=== PATIENT | male | born 1960 | race Caucasian/White ===

== ENCOUNTER 2020-11-24 04:48 | Inpatient (IN) | payer SELFPAY ==
[2020-11-24 05:19] LABS: PARTIAL THROMBOPLASTIN TIME 27.2 SEC (23.5-35.8)
[2020-11-24 05:21] LABS: ABSOLUTE BASOPHILS # (AUTO) 0.1 10^3/uL (0.0-0.2); ABSOLUTE EOSINOPHILS # (AUTO) 0.2 10^3/uL (0.0-0.6); ABSOLUTE LYMPHOCYTES (AUTO) 2.1 10^3/uL (0.5-4.7); ABSOLUTE MONOCYTES (AUTO) 0.8 10^3/uL (0.1-1.4); ABSOLUTE NEUT (AUTO) 3.2 10^3/uL (1.7-8.2); BASOPHILS % (AUTO) 0.8 % (0-2); EOSINOPHILS % (AUTO) 3.3 % (0-6); HEMOGLOBIN 14.3 g/dL (13.5-17.0); LYMPHOCYTES % (AUTO) 33.4 % (13-45); MEAN CORPUSCULAR HEMOGLOBIN 29.4 pg (27.0-33.4); MEAN CORPUSCULAR HGB CONC 34.8 g/dL (32.0-36.0); MEAN CORPUSCULAR VOLUME 85 fl (80-97); MONOCYTES % (AUTO) 11.9 % (3-13); PLATELET COUNT 259 10^3/uL (150-450); RED BLOOD COUNT 4.85 10^6/uL (4.35-5.55); RED CELL DISTRIBUTION WIDTH 13.5 % (11.5-14.0); SEGMENTED NEUTROPHILS % (AUTO) 50.6 % (42-78); TOTAL CELLS COUNTED % (AUTO) 100 %; WHITE BLOOD COUNT 6.3 10^3/uL (4.0-10.5)
[2020-11-24 05:28] LABS: INTERNATIONAL RATION (INR) 0.94; PROTHROMBIN TIME 12.8 SEC (11.4-15.4)
[2020-11-24 05:30] LABS: ALBUMIN 4.1 g/dL (3.5-5.0); ALKALINE PHOSPHATASE 64 U/L (38-126); ANION GAP 7 (5-19); ASPARTATE AMINO TRANSFERASE 35 U/L (17-59); BILIRUBIN,DIRECT 0.3 mg/dL (0.0-0.4); BILIRUBIN,TOTAL 0.5 mg/dL (0.2-1.3); BLOOD UREA NITROGEN 20 mg/dL (7-20); CALCIUM 9.4 mg/dL (8.4-10.2); CARBON DIOXIDE 25 mmol/L (22-30); CHLORIDE 106 mmol/L (98-107); CREATINE KINASE 135 U/L (55-170); GLUCOSE 118 mg/dL (75-110); POTASSIUM 4.2 mmol/L (3.6-5.0)
--- NOTE | 2020-11-24 05:33 | ER Document Report ---
ED Medical Screen (RME) - General Chief Complaint: General Weakness Stated Complaint: RIGHT SIDE WEAKNESS - HPI Context: Chief Complaint: [Right-sided weakness] [This is a 59-year-old male who presents via EMS as a stroke alert. Patient states that he was in his usual state of health when he went to bed at 2200 hrs. last night. Patient states that when he woke up at 4 AM to use the bathroom he noticed he had weakness in his right lower extremity that he is not had in the past. Patient denied slurred speech, visual change, headache, upper extremity weakness, facial droop. This MD met the patient at the EMS bay door and did a cursory exam of the patient. ] History obtained from [patient] Symptoms began:[Sometime after 2200 hrs. last night] Onset: [Exact time of onset unknown] Timing: [While sleeping] Quality: [Inability to move right lower extremity] Intensity: [Patient denies pain] Location: [Right lower extremity] Radiation: [Patient denies] [The pain does not migrate to a new location.] Aggravating factors: [none] Relieving factors: [none] [Denies] SOB [Denies] nausea [Denies] vomiting [Denies] sweats [Denies] fever [Denies] cough [Denies] calf or leg swelling or pain This is a rapid medical examination that has been performed by this provider. Further evaluation and treatment will be undertaken by another provider in the main ED. Patient's stroke protocol CT was read as negative by Dr. Chris Kapadia, radiologist. Results of head CT discussed with Dr. Kapadia at 0535 hrs. Past Medical History - General Information source: Patient Review of Systems - Review of Systems Notes: Review of systems as below unless otherwise stated in HPI. CONSTITUTIONAL [No] fever, [No] chills. EYES [No] eye pain. ENT [No] URI symptoms, [No] sore throat, [No] ear pain. CARDIOVASCULAR [No] chest pain, [No] palpitations, [No] edema. RESPIRATORY [No] Cough, [No] SOB, [No] wheezing. GASTROINTESTINAL [No] abdominal pain, [No] nausea, [No] Diarrhea, [No] Vomiting, [No] constipation, [No] melena, [No] rectal bleeding. GENITOURINARY [No] dysuria, [No] urinary frequency, [No] hematuria, [No] urinary urgency MUSCULOSKELETAL [No] Back pain. SKIN [No] Rash. NEUROLOGIC [No] Headache, [No] recent seizures, positive paralysis,[No] parathesias. ENDOCRINE [No] polyuria. HEMO/LYMPATIC [No] easy brusing PSYCHIATRIC [No] depression. Physical Exam - Vital signs Vitals: Resp Pulse Ox 15 98 11/24/20 05:00 11/24/20 05:00 - Notes Notes: CONSTITUTIONAL [Vital signs reviewed, Patient appears comfortable, Alert and oriented X 3, Normal stature.] HEAD [Atraumatic, Normocephalic.] EYES [Eyes are normal to inspection, No discharge from eyes, Extraocular muscles intact, Sclera are normal, Conjunctiva are normal.] ENT [External ears normal to inspection, Nose examination normal, Mouth normal to inspection.] NECK [Normal ROM, No jugular venous distention, No meningeal signs, ] RESPIRATORY CHEST [Chest is nontender, Breath sounds normal, No respiratory distress.] CARDIOVASCULAR [RRR, No murmurs, Normal S1 S2, No rub, No gallop.] ABDOMEN [Abdomen is nontender, No pulsatile masses, No other masses, Bowel sounds normal, No distension, No peritoneal signs, No hernias.] BACK [There is no CVA Tenderness, There is no tenderness to palpation, Normal inspection.] UPPER EXTREMITY [Inspection normal, No cyanosis, No clubbing, No edema, LOWER EXTREMITY [Inspection normal, No cyanosis, No clubbing, No edema, No calf tenderness, NEURO [Patient's speech is normal. Patient is alert and oriented x4. There is no facial droop. Patient has no pronator drift and has upper extremities. Research Recruiter strength is 5 out of 5 in bilateral hands. Sensation is equally intact in upper extremities bilaterally. Patient has no pronator drift in his left lower extremity. Patient has a normal Babinski in his left lower extremity. Patient is unable to raise his right lower extremity and his foot is fixed in a position of plantarflexion. Unable to elicit any Babinski reflex. There is no tenderness or step-off on palpation of the Achilles tendon on the right lower extremity. Patient states sensation feels completely equal and intact in both lower extremities.] SKIN [Skin is warm, Skin is dry, Skin is normal color.] LYMPHATIC [No adenopathy in neck.] PSYCHIATRIC [Normal affect. ] Course - Vital Signs Vital signs: Temp Pulse Resp BP Pulse Ox 97 17 177/105 H 97 11/24/20 05:07 11/24/20 05:07 11/24/20 05:07 11/24/20 05:07 - Laboratory Results Result Diagrams: 11/24/20 05:00 11/24/20 05:00 Laboratory Results Interpreted: 11/24/20 05:00 Glucose 118 H Doctor's Discharge - Discharge Clinical Impression: Weakness of right lower extremity
--- NOTE | 2020-11-24 05:35 | RADIOLOGY REPORT (SQ) ---
CT head without contrast on 11/24/2020 at 4:51 AM CLINICAL INDICATION: Right lower extremity weakness, stroke alert TECHNIQUE: Multiple axial images are obtained throughout the head without the administration of contrast. This exam was performed according to our departmental dose-optimization program, which includes automated exposure control, adjustment of the mA and/or kV according to patient size and/or use of iterative reconstruction technique. Total DLP is 1017.17 mGy*cm. COMPARISON: None FINDINGS: There is no hydrocephalus. There is no CT evidence of acute infarct. There is no hemorrhage. There are no abnormal extra-axial fluid collections. There is no mass, mass effect or midline shift. No bony abnormality is noted. IMPRESSION: No acute intracranial abnormality. Dr. Norton was made aware of this report by myself by phone on 11/24/2020 at 5:34 AM eastern time.
[2020-11-24 05:41] LABS: CREATINE KINASE MB 1.37 ng/mL (<4.55)
[2020-11-24 05:44] LABS: TROPONIN I < 0.012 ng/mL
--- NOTE | 2020-11-24 05:51 | RADIOLOGY REPORT (SQ) ---
CHEST X-RAY 1 VIEW on 11/24/2020 at 4:57 AM CLINICAL INDICATION: Stroke COMPARISON: None FINDINGS: The lungs are clear. Cardiac, hilar and mediastinal contours are within normal limits. Pulmonary vascularity is within normal limits. No bony abnormality is noted. IMPRESSION: No active disease.
--- NOTE | 2020-11-24 07:38 | ER Document Report ---
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 Patient states that he was in his usual state when he went to bed at around 2200 hrs. last night. He awakened to go to the bathroom about 4 AM this morning and when he attempted to get out of bed his right leg collapsed underneath him. He was unable to get himself up and call for help and was transported here via EMS. He was seen for limited evaluation by another physician here initially. They ordered a stat noncontrast head CT which was normal. Routine labs were ordered. He denies headache, visual changes, nausea, vomiting, difficulty with speech or swallowing. He has some minimal paresthesias of his right lower extremity. Patient is not diabetic and does not report any history of hyperlipidemia. Family history is positive for CVA. Patient quit drinking about 3 months ago. Says he was a moderate to heavy drinker prior to that time. Past medical history is remarkable for hypertension and history of ankylosing spondylitis. He has been treated in the past for iritis. He has no known allergies. - Related Data Allergies/Adverse Reactions: No Known Allergies Allergy (Verified 11/24/20 07:27) Home Medications: meclazine, meloxicam, escitalopram, olmesartan medoximil Past Medical History - General Information source: Patient - Social History Smoking Status: Never Smoker Frequency of alcohol use: None Drug Abuse: None Family History: CVA Patient has homicidal ideation: No - Past Medical History Cardiac Medical History: Reports: Hx Hypertension Neurological Medical History: Denies: Hx Cerebrovascular Accident, Hx Migraine Endocrine Medical History: Denies: Hx Diabetes Mellitus Type 1, Hx Diabetes Mellitus Type 2 Musculoskeletal Medical History: Reports Hx Arthritis, Reports Other - Ankylosing spondylitis Surgical Hx: Negative Review of Systems - Review of Systems Notes: Constitutional: Negative for fever. HENT: Negative for sore throat. Eyes: Negative for visual changes. Cardiovascular: Negative for chest pain. Respiratory: Negative for shortness of breath. Gastrointestinal: Negative for abdominal pain, vomiting or diarrhea. Genitourinary: Negative for dysuria. Musculoskeletal: Negative for back pain. Skin: Negative for rash. Neurological: As per HPI. 10 point ROS negative except as marked above and in HPI. Physical Exam - Vital signs Vitals: Temp 97.8 F 11/24/20 04:50 - Notes Notes: GENERAL: Well-developed well-nourished male approximately stated age appearing in no acute distress. SKIN: Good turgor no rashes. HEAD: Normocephalic atraumatic. EYES: PERRLA. EOMI. Conjunctivae and sclerae clear. EARS: CANALS AND TMS CLEAR. NOSE: CLEAR. MOUTH: Moist mucosa. Good dentition. No stridor or edema. No drooling. NECK: Supple. No masses or thyromegaly. No adenopathy. Carotids 2+ without bruits. No JVD. BACK: Symmetrical without tenderness. Straight leg raising test is negative. CHEST: Respirations unlabored. Breath sounds clear and symmetrical. HEART: Regular rhythm. No murmur gallop or rub. ABDOMEN: Soft nontender without masses, organomegaly or rebound. Bowel sounds normally active. No bruits. GENITALIA: Deferred. EXTREMITIES: No edema. No calf tenderness. Cap refill less than 1.5 seconds. Dorsalis pedis and posterior tibial pulses 3+ and symmetrical. NEUROLOGICAL: GCS 15. Alert and oriented x3. Fluent speech. Cranial nerves II through XII intact. Patient has paralysis of his right lower extremity unable to lift this off the bed. Sensation is normal and symmetrical all of the motor testing is normal. Finger-nose testing is normal normal tone. PSYCHIATRIC: Appropriate affect. Course - Re-evaluation Re-evalutation: 11/24/20 11:39 This is a 59-year-old non-smoking male with a history of mild hypertension who presented with "wake-up stroke" symptoms. Patient reported he was in his usual state at 10 PM when he went to bed. When he awakened shortly at 5 AM he had profound motor impairment of his right lower extremity. This was confirmed on his exam here. Initial noncontrast head CT was read as normal by the radiologist. We subsequently obtained CTA of head and neck also read as normal. Motor impairment is persistent right lower extremity. We therefore obtained MRI of the brain and this demonstrates an acute infarct in the left MCA distribution involving the left centrum semiovale near the midline and this extends to involve the anterior parietal lobe. I have contacted the stroke center at [facility] for consultation regarding possible transfer. Patient has been advised of these results. 11/24/20 12:17 Telephone consultation was obtained with Dr. Mihai Clinton the on-call stroke neurologist at [facility] and we have transmitted all imaging to him for review. He concurs that this is an acute ischemic stroke which appears to involve the anterior cerebral artery on the left. He does not feel that thrombolytics or interventional radiology procedure will be helpful in this case. He recommends local admission with additional studies to include hemoglobin A1c, echocardiogram and telemetry monitoring for dysrhythmia. Also recommends initiation of aspirin therapy. Findings/recommendations have been discussed with the patient and he is agreeable to admission. I have discussed with on-call hospitalist Dr. Tony and patient is admitted to [facility]. - Vital Signs Vital signs: Temp Pulse Resp BP Pulse Ox 98.3 F 82 17 164/90 H 96 11/24/20 11:30 11/24/20 11:00 11/24/20 12:01 11/24/20 12:00 11/24/20 12:01 - Laboratory Results Result Diagrams: 11/24/20 05:00 11/24/20 05:00 Laboratory Results Interpreted: 11/24/20 05:00 Glucose 118 H Critical Laboratory Results Reviewed: No Critical Results - Radiology Results Radiology Results Interpreted: 11/24/20 11:39 Chest X-Ray 11/24/20 00:00 IMPRESSION: No active disease. Head CT 11/24/20 00:00 IMPRESSION: No acute intracranial abnormality. Dr. Norton was made aware of this report by myself by phone on 11/24/2020 at 5:34 AM eastern time. Head CTA 11/24/20 07:32 IMPRESSION: NO CTA EVIDENCE OF STENOSIS OR ANEURYSM OF THE [place]. Neck CTA 11/24/20 07:32 IMPRESSION: NORMAL CTA OF THE EXTRA-CRANIAL CAROTID AND VERTEBRAL ARTERIES. Head MRI 11/24/20 09:12 IMPRESSION: Acute infarct in the left MCA distribution involving the left centrum semiovale near the midline. This extends to involve the anterior parietal lobe. Mild underlying small vessel ischemic changes in the periventricular and subcortical white matter. EVIDENCE OF ACUTE STROKE: YES. Critical Radiology Results Reviewed: Yes Attending or Supervising Physician who Reviewed Radiology: TYLER PHAN - EKG Interpretation by Me Additional EKG results interpreted by me: 11/24/20 07:43 Twelve-lead EKG reviewed by me contemporaneously: 0512 hrs. Indication for study: Stroke Rhythm: Normal sinus Rate: 93 Intervals: Normal intervals QRS axis: -[address]/T wave changes: None Comparison with prior tracing: None Interpretation: Normal tracing Discharge - Discharge Clinical Impression: Acute ischemic cerebrovascular accident (CVA) involving anterior cerebral artery territory Clinical Impression: (Ruled Out): Weakness of right lower extremity Condition: Good Disposition: ADMITTED INPATIENT Admitting Provider: Cecily (Hospitalist) Unit Admitted: [facility]
--- NOTE | 2020-11-24 07:55 | EKG REPORT ---
SEVERITY:- NORMAL ECG - SINUS RHYTHM : Confirmed by: Chery Bean 24-Nov-2020 07:54:21
--- NOTE | 2020-11-24 08:48 | RADIOLOGY REPORT (SQ) ---
EXAM DESCRIPTION: CTA HEAD IMAGES COMPLETED DATE/TIME: 11/24/2020 8:18 am REASON FOR STUDY: stroke COMPARISON: None. TECHNIQUE: Post IV contrast scanning, thin section axial imaging through the brain to evaluate the a rterial structures. Source and MIP images are saved and reviewed on PACS. Advanced 3D imaging as volume-rendering, MIPs, SSD performed? yes All CT scanners at this facility use dose modulation, iterative reconstruction, and/or weight based d osing when appropriate to reduce radiation dose to as low as reasonably achievable (ALARA). [facility]: Dose Right [facility]: CareDose [facility]: Dose Right [facility]: Teradose 4D [facility]: Naldo CONTRAST TYPE AND DOSE: contrast/concentration: Isovue 350.00 mmol/ml; Total Contrast Delivered: 70. 0 ml; Total Saline Delivered: 75.0 ml RENAL FUNCTION: BUN 20, creatinine 1.14 LIMITATIONS: None. FINDINGS: [place]: The anterior, middle, posterior cerebral arteries are all patent. No ev idence of aneurysm or focal stenosis. POSTERIOR CIRCULATION: The distal vertebral arteries are patent as is the basilar artery. No aneurysm . BRAIN: No gross enhancing lesions as visualized. The superior cerebral hemispheres are not included in the field of view. BONES: Intact as visualized. SINUSES: No fluid or mucosal thickening. OTHER: No other significant finding. IMPRESSION: NO CTA EVIDENCE OF STENOSIS OR ANEURYSM OF THE [place]. TECHNICAL DOCUMENTATION: JOB ID: [id number] Quality ID # 436: Final reports with documentation of one or more dose reduction techniques (e.g., Au tomated exposure control, adjustment of the mA and/or kV according to patient size, use of iterative reconstruction technique) 2010 [email or web address]- All Rights Reserved Reading location - IP/workstation name: [email or web address]
--- NOTE | 2020-11-24 08:49 | RADIOLOGY REPORT (SQ) ---
EXAM DESCRIPTION: CTA NECK IMAGES COMPLETED DATE/TIME: 11/24/2020 8:18 am REASON FOR STUDY: stroke COMPARISON: None. TECHNIQUE: Axial dynamic scanning technique with dynamic contrast enhancement through the extra-uncrater nial carotid and vertebral arteries. Multiplanar reconstruction. 3-D MIPS and Volume-rendered imag es acquired at the workstation and saved to PACS. Images are reviewed in soft tissue, bone, lung w indows. All CT scanners at this facility use dose modulation, iterative reconstruction, and/or weight based d osing when appropriate to reduce radiation dose to as low as reasonably achievable (ALARA). [facility]: Dose Right [facility]: CareDose [facility]: Dose Right [facility]: Teradose 4D [facility]: [employer] CONTRAST TYPE AND DOSE: 70 mL Omnipaque 350- low osmolar. RENAL FUNCTION: BUN 20, creatinine 1.14 LIMITATIONS: None. FINDINGS: AORTIC ARCH: Normal three-vessel origin. Bilateral subclavian arteries are patent. No d issection. RIGHT CAROTIDS: Patent common, internal and external carotid arteries without suggestion of significa nt stenosis or irregular plaque. No dissection. RIGHT VERTEBRAL: Patent. Hypoplastic. LEFT CAROTIDS: Patent common, internal and external carotid arteries without suggestion of significan t stenosis or irregular plaque. No dissection. LEFT VERTEBRAL: Patent. No dissection. OTHER: No other significant finding. OTHER: 3-D reconstructions confirm findings. IMPRESSION: NORMAL CTA OF THE EXTRA-CRANIAL CAROTID AND VERTEBRAL ARTERIES. COMMENT: Quality ID #[id number]: Measurements of distal internal carotid diameter were used as the denomina tor for stenosis measurement. TECHNICAL DOCUMENTATION: JOB ID: [id number] Quality ID # 436: Final reports with documentation of one or more dose reduction techniques (e.g., Au tomated exposure control, adjustment of the mA and/or kV according to patient size, use of iterative reconstruction technique) 2010 [employer]- All Rights Reserved Reading location - IP/workstation name: [email or web address]
--- NOTE | 2020-11-24 11:30 | RADIOLOGY REPORT (SQ) ---
EXAM DESCRIPTION: MRI HEAD COMBO IMAGES COMPLETED DATE/TIME: 11/24/2020 11:18 am REASON FOR STUDY: RLE paralysis; normal CTA Head/neck COMPARISON: CT brain dated 11/24/2020 TECHNIQUE: Multiplanar imaging includes noncontrasted T1, T2, FLAIR, and Diffusion with ADC map seq uences. Contrast enhanced T1 images. Images stored on PACS. CONTRAST TYPE AND DOSE: 20 mL Prohance. RENAL FUNCTION: Not indicated. ACR Type II contrast agent associated with few, if any, unconfounded cases of NSF LIMITATIONS: None. FINDINGS: ANATOMY: No anomalies. Normal vascular flow voids. Pituitary fossa normal. CSF SPACES: Normal size and contour. No hemorrhage. CEREBRUM: A few high-signal intensity lesions scattered throughout the white matter on FLAIR imaging with distribution suggesting chronic microvascular ischemic change. Sulci and gyri normal in size and contour. No evidence of hemorrhage, mass or extraaxial fluid collection. No enhancing lesions. POSTERIOR FOSSA: No signal alteration. No hemorrhage. No edema, masses or mass effect. Internal audit ory canals, cerebello-pontine angles, mastoids normal. DIFFUSION: Abnormal diffusion involving the left centrum semiovale consistent with acute infarct. ORBITS: No masses. Globes normal. PARANASAL SINUSES: No fluid levels. Mucosa normal. OTHER: No other significant finding. IMPRESSION: Acute infarct in the left MCA distribution involving the left centrum semiovale near the midline. This extends to involve the anterior parietal lobe. Mild underlying small vessel ischemic changes in the periventricular and subcortical white matter. EVIDENCE OF ACUTE STROKE: YES. COMMENT: This report was called to TYLER PHAN MD at11:23 on 11/24/2020. TECHNICAL DOCUMENTATION: JOB ID: [id number] [employer]- All Rights Reserved Reading location - IP/workstation name: [email or web address]
[2020-11-24] MEDS ORDERED: ASPIRIN 81 MG TABLET, CHEWABLE PO ONE (12:20)
[2020-11-24] MEDS ORDERED: ONDANSETRON HCL INJ/PF 4 MG/2 ML SDV IV PRN (13:17)
[2020-11-24] MEDS ORDERED: MAG HYDROX/AL HYDROX/SIMETH SUSP 30 ML UDCUP PO PRN (13:17)
--- NOTE | 2020-11-24 13:41 | PDOC H&P ---
History of Present Illness Admission Date/PCP: 11/24/20 12:29 Patient complains of: Right leg weakness History of Present Illness: SONJA ROSS is a 59 year old male with history of ankylosing spondylitis, arthritis in shoulders bilaterally and hip, hypertension, anxiety, who presents to the hospital for acute onset of right leg weakness. This started around 4-5 AM this morning. Last known normal was 10 PM last night. On presentation to the ER, neurology was consulted by ER provider and deemed to of course to be out of the therapeutic window for TPA. Is being brought in for treatment of stroke. He also notes some weakness in his right arm. He has chronic problems with his shoulder especially his right shoulder for which she gets injections. He denies any history of previous strokes. Denies any history of irregular heartbeat or A. fib. Past Medical History Cardiac Medical History: Reports: Hypertension Neurological Medical History: Denies: Migraine Endocrine Medical History: Denies: Diabetes Mellitus Type 1, Diabetes Mellitus Type 2 Musculoskeltal Medical History: Reports: Arthritis, Other - Ankylosing spondylitis Psychiatric Medical History: Reports: General Anxiety Disorder Past Surgical History Past Surgical History: Reports: Other - urologic procedure to address bladder lesions Social History Smoking Status: Never Smoker Frequency of Alcohol Use: None Hx Recreational Drug Use: No - Advance Directive Resuscitation Status: Full Code Family History Family History: CVA Parental Family History Reviewed: Yes Children Family History Reviewed: Yes Sibling(s) Family History Reviewed.: Yes Medication/Allergy Allergies/Adverse Reactions: No Known Allergies Allergy (Verified 11/24/20 07:27) Review of Systems Constitutional: ABSENT: chills, fever(s) Eyes: ABSENT: visual disturbances Nose, Mouth, and Throat: ABSENT: headache(s) Cardiovascular: ABSENT: chest pain Respiratory: ABSENT: cough, dyspnea Gastrointestinal: ABSENT: nausea, vomiting Genitourinary: ABSENT: difficulty urinating, dysuria Musculoskeletal: PRESENT: back pain Neurological: PRESENT: vertigo - chronic intermittent episodes for which he takes meclizine Psychiatric: PRESENT: anxiety Endocrine: ABSENT: polyuria Hematologic/Lymphatic: ABSENT: easy bleeding Physical Exam Vital Signs: Temp Pulse Resp BP Pulse Ox 98.3 F 82 20 196/89 H 92 11/24/20 11:30 11/24/20 11:00 11/24/20 13:01 11/24/20 13:00 11/24/20 13:01 Intake & Output 11/23/20 11/24/20 11/25/20 06:59 06:59 06:59 Output Total 400 Balance -400 Weight 108.862 kg General appearance: PRESENT: no acute distress, cooperative Head exam: PRESENT: atraumatic, normocephalic Eye exam: PRESENT: EOMI, PERRLA. ABSENT: nystagmus Mouth exam: PRESENT: moist Neck exam: ABSENT: JVD Respiratory exam: PRESENT: clear to auscultation lea, unlabored. ABSENT: access ory muscle use, tachypnea, wheezes Cardiovascular exam: PRESENT: RRR, +S1, +S2, systolic murmur - RUSB. ABSENT: tachycardia GI/Abdominal exam: PRESENT: soft. ABSENT: rebound, rigid, tenderness Neurological exam: PRESENT: alert, awake, oriented to person, oriented to place, oriented to time, oriented to situation, CN II-XII grossly intact, motor sensory deficit - 2/5 in RLE, 5/5 in LLE, 4/5 RUE, 5/5LUE. ABSENT: ataxia, normal gait - unable to stand on his own, aphasic Results Laboratory Results: 11/24/20 05:00 11/24/20 05:00 11/24/20 11/24/20 05:00 05:00 WBC 6.3 RBC 4.85 Hgb 14.3 Hct 41.0 MCV 85 MCH 29.4 MCHC 34.8 RDW 13.5 Plt Count 259 Seg Neutrophils % 50.6 Sodium 137.6 Potassium 4.2 Chloride 106 Carbon Dioxide 25 Anion Gap 7 BUN 20 Creatinine 1.14 Est GFR ( Amer) > 60 Glucose 118 H Calcium 9.4 Total Bilirubin 0.5 AST 35 Alkaline Phosphatase 64 Total Protein 7.0 Albumin 4.1 11/24/20 11/24/20 05:00 05:00 Creatine Kinase 135 CK-MB (CK-2) 1.37 Troponin I < 0.012 Impressions: Chest X-Ray 11/24/20 00:00 IMPRESSION: No active disease. Head CT 11/24/20 00:00 IMPRESSION: No acute intracranial abnormality. Dr. Norton was made aware of this report by myself by phone on 11/24/2020 at 5:34 AM eastern time. Head CTA 11/24/20 07:32 IMPRESSION: NO CTA EVIDENCE OF STENOSIS OR ANEURYSM OF [place]. Neck CTA 11/24/20 07:32 IMPRESSION: NORMAL CTA OF THE EXTRA-CRANIAL CAROTID AND VERTEBRAL ARTERIES. Head MRI 11/24/20 09:12 IMPRESSION: Acute infarct in the left MCA distribution involving the left centrum semiovale near the midline. This extends to involve the anterior parietal lobe. Mild underlying small vessel ischemic changes in the periventricular and subcortical white matter. EVIDENCE OF ACUTE STROKE: YES. Assessment and Plan - Diagnosis (1) Acute ischemic cerebrovascular accident (CVA) involving left middle cerebral artery territory Is this a current diagnosis for this admission?: Yes Plan: MRI confirms acute ischemic stroke. Involving the left centrum semiovale and anterior parietal Deficit is right sided weakness. 2/5 in rt leg Presented out of the TPA window. Keep flat in bed, permissive hypertension to 220/120 for 24hrs Check lipid panel, hemoglobin A1c Aspirin, Plavix for 21 days, atorvastatin Telemetry monitoring for 24 hours PT/OT/patient educator/social work consultation (2) HTN (hypertension) Qualifiers: Hypertension type: essential hypertension Qualified Code(s): I10 - Essential (primary) hypertension Is this a current diagnosis for this admission?: Yes Plan: Hold antihypertensives for now (3) Anxiety Is this a current diagnosis for this admission?: Yes Plan: Escitalopram (4) Ankylosing spondylitis Is this a current diagnosis for this admission?: Yes Plan: Not on any biologic agents. Resume meloxicam. Pain control as needed. - Time Time Spent with patient: 35 or more minutes Anticipated Discharge Disposition: Tertiary Anticipated Discharge Timeframe: within 48 hours
[2020-11-24] MEDS: ESCITALOPRAM OXALATE 10 MG TABLET PO SCH (14:19)
[2020-11-24] MEDS: MELOXICAM 15 MG TABLET PO SCH (15:38)
--- NOTE | 2020-11-24 18:57 | XCELERA REPORT ---
[address] [address] Transthoracic Echocardiogram Report Name: SONJA ROSS Age: 59 yrs Gender: Male : 1960 Patient Status: Inpatient Patient Location: [place] [address]^A Study Date: 11/24/2020 02:39 PM History: RAKEL Height: 72 in Weight: 240 lb BSA: 2.3 m2 Procedure: A complete two-dimensional transthoracic echocardiogram was performed (2D, M-mode, spectral and color flow Doppler). The study was technically difficult with many images being suboptimal in quality. Reason For Study: acute stroke. w/ bubble study Previous Evaluation: No previous studies were available. History: CVA. Ordering Physician: QUINTIN SANTOS Performed By: Pauline Hood Interpretation Summary Left ventricular systolic function is normal. The Ejection Fraction estimate is 55-60% The right ventricle is normal in size and function. There is a trace amount of mitral regurgitation There is no aortic valve stenosis There is a trace amount of tricuspid regurgitation There is no pericardial effusion. Injection of contrast documented no interatrial shunt. MMode/2D Measurements & Calculations RVDd: 2.0 cm LVIDd: 4.6 cm FS: 32.3 % Ao root diam: 2.5 cm IVSd: 0.88 cm LVIDs: 3.1 cm EDV(Teich): 95.7 ml Ao root area: 5.0 cm2 LVPWd: 0.91 cm ESV(Teich): 37.6 ml EF(Teich): 60.7 % Doppler Measurements & Calculations MV E max dmitri: MV dec slope: Ao V2 max: LV V1 max P.3 cm/sec 318.1 cm/sec2 148.6 cm/sec 12.0 mmHg MV A max dmitri: MV dec time: 0.20 sec Ao max PG: LV V1 max: 78.0 cm/sec 8.8 mmHg 172.9 cm/sec MV E/A: 0.81 PA V2 max: 93.5 cm/sec PA max P.5 mmHg Left Ventricle The left ventricle is normal in size. There is borderline concentric left ventricular hypertrophy. Left ventricular systolic function is normal. The Ejection Fraction estimate is 55-60%. Doppler measurements suggest impaired left ventricular relaxation, which is associated with grade I/IV or mild diastolic dysfunction. Regional wall motion abnormalities cannot be excluded due to limited visualization. Right Ventricle The right ventricle is normal in size and function. Atria The right atrium is normal. The left atrial size is normal. The interatrial septum is intact with no evidence for an atrial septal defect. Injection of contrast documented no interatrial shunt. Bubble study is pf suboptimal quality. Mitral Valve The mitral valve is grossly normal. No significant mitral valve stenosis. There is a trace amount of mitral regurgitation. Aortic Valve The aortic valve opens well. The aortic valve is not well visualized secondary to technical limitations. There is no aortic valve stenosis. No aortic regurgitation is present. Tricuspid Valve The tricuspid valve is not well visualized secondary to technical limitations. There is a trace amount of tricuspid regurgitation. Tricuspid regurgitation jet envelope not well defined to measure RV systolic pressure accurately. Pulmonic Valve The pulmonic valve is not well visualized. There is no pulmonic valvular stenosis. There is a trace amount of pulmonic regurgitation. Great Vessels The aortic root is not well visualized but is probably normal size. Effusions There is no pericardial effusion. : QUINTIN SANTOS Anil
[2020-11-24] MEDS ORDERED: ATORVASTATIN CALCIUM 40 MG TABLET PO SCH (22:00)
[2020-11-24] MEDS: FAMOTIDINE 20 MG TABLET PO SCH (22:40)
[2020-11-24] MEDS: ACETAMINOPHEN 325 MG TABLET PO PRN (22:46)
[2020-11-25] MEDS ORDERED: CYCLOBENZAPRINE HCL 10 MG TABLET PO PRN
[2020-11-25 07:29] LABS: CHOLESTEROL 270.28 mg/dL (0-200); TRIGLYCERIDES 272 mg/dL (<150)
[2020-11-25 07:40] LABS: DIRECT LDL 119 mg/dL (<100)
[2020-11-25 07:45] LABS: VLDL CHOLESTEROL 54.4 mg/dL (10-31)
[2020-11-25] MEDS: ENOXAPARIN SODIUM INJ 40 MG/0.4 ML DISP.SYRIN SUBCUT SCH (09:41)
[2020-11-25] MEDS: FAMOTIDINE 20 MG TABLET PO SCH ×2 (09:41→21:46)
[2020-11-25] MEDS: LOSARTAN POTASSIUM 50 MG TABLET PO SCH ×2 (09:41→21:46)
[2020-11-25] MEDS: ESCITALOPRAM OXALATE 10 MG TABLET PO SCH (09:41)
[2020-11-25] MEDS: HYDROCHLOROTHIAZIDE 25 MG TABLET PO SCH (09:41)
[2020-11-25] MEDS: CLOPIDOGREL BISULFATE 75 MG TABLET PO SCH (09:41)
[2020-11-25] MEDS: ASPIRIN 81 MG TABLET, ENT COATED PO SCH (09:41)
[2020-11-25] MEDS: MELOXICAM 15 MG TABLET PO SCH (09:43)
--- NOTE | 2020-11-25 14:22 | PDOC PROGRESS REPORT ---
Subjective Date:: 11/25/20 Subjective:: Patient tolerated physical therapy today. Had some cramping in his right leg ove rnight and this morning. Was started on prn flexeril overnight. Still having right shoulder pain. Reason For Visit: CVA/INVOLVING ANTERIOR CEREBRAL ARTERY TERRITORY Physical Exam Vital Signs: Temp Pulse Resp BP Pulse Ox 98.1 F 87 16 149/88 H 96 11/25/20 11:54 11/25/20 12:00 11/25/20 12:00 11/25/20 12:00 11/25/20 12:00 Intake & Output 11/24/20 11/25/20 11/26/20 06:59 06:59 06:59 Intake Total 400 Output Total 1050 Balance -1050 400 Weight 109.6 kg General appearance: PRESENT: no acute distress, cooperative Neck exam: ABSENT: JVD Respiratory exam: PRESENT: unlabored. ABSENT: accessory muscle use Cardiovascular exam: PRESENT: RRR, +S1, +S2. ABSENT: irregular rhythm, tachycardia GI/Abdominal exam: PRESENT: soft. 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 Psychiatric exam: ABSENT: agitated, anxious Results Laboratory Results: 11/24/20 05:00 11/24/20 05:00 11/25/20 05:57 Triglycerides 272 H Cholesterol 270.28 H LDL Cholesterol Direct 119 H VLDL Cholesterol 54.4 H HDL Cholesterol 43 11/24/20 11/24/20 05:00 05:00 Creatine Kinase 135 CK-MB (CK-2) 1.37 Troponin I < 0.012 Impressions: Chest X-Ray 11/24/20 00:00 IMPRESSION: No active disease. Head CT 11/24/20 00:00 IMPRESSION: No acute intracranial abnormality. Dr. Norton was made aware of this report by myself by phone on 11/24/2020 at 5:34 AM eastern time. Head CTA 11/24/20 07:32 IMPRESSION: NO CTA EVIDENCE OF STENOSIS OR ANEURYSM OF [place]. Neck CTA 11/24/20 07:32 IMPRESSION: NORMAL CTA OF THE EXTRA-CRANIAL CAROTID AND VERTEBRAL ARTERIES. Head MRI 11/24/20 09:12 IMPRESSION: Acute infarct in the left MCA distribution involving the left centrum semiovale near the midline. This extends to involve the anterior parietal lobe. Mild underlying small vessel ischemic changes in the periventricular and subcortical white matter. EVIDENCE OF ACUTE STROKE: YES. Assessment and Plan - Diagnosis (1) Acute ischemic cerebrovascular accident (CVA) involving left middle cerebral artery territory Is this a current diagnosis for this admission?: Yes Plan: MRI confirms acute ischemic stroke. Involving the left centrum semiovale and anterior parietal Deficit is right sided weakness. 2/5 in rt leg Presented out of the TPA window. Aspirin lifelong, Plavix for 20 more days, atorvastatin Telemetry monitoring so far has shown no evidence of AFib Echo and CTA H/N not remarkable Evaluated by PT who recommends Acute Rehab Accepted by Dr. Greenwood. Patient will be leaving for acute inpatient rehab at [facility] in the morning. (2) HTN (hypertension) Qualifiers: Hypertension type: essential hypertension Qualified Code(s): I10 - Essential (primary) hypertension Is this a current diagnosis for this admission?: Yes Plan: Antihypertensives resumed. Takes olmesartan/hydrochlorothiazide 40/25 mg daily at home-Olmesartan substituted for losartan while inpatient. (3) Anxiety Is this a current diagnosis for this admission?: Yes Plan: Escitalopram (4) Ankylosing spondylitis Is this a current diagnosis for this admission?: Yes Plan: Not on any biologic agents. Resume meloxicam. Pain control as needed. Check x-ray of his right shoulder regarding his complaints of pain (5) Hyperlipidemia Qualifiers: Hyperlipidemia type: mixed hyperlipidemia Qualified Code(s): E78.2 - Mixed hyperlipidemia Is this a current diagnosis for this admission?: Yes Plan: High-dose statin initiated - Time Time Spent with patient: 15-24 minutes Anticipated Discharge Disposition: Tertiary Anticipated Discharge Timeframe: within 24 hours
[2020-11-25] MEDS: ACETAMINOPHEN 325 MG TABLET PO PRN (16:42)
[2020-11-25] MEDS ORDERED: ATORVASTATIN CALCIUM 80 MG TABLET PO SCH (22:00)
--- NOTE | 2020-11-26 09:02 | RADIOLOGY REPORT (SQ) ---
EXAM DESCRIPTION: SHOULDER RIGHT 2 OR MORE VIEWS IMAGES COMPLETED DATE/TIME: 11/25/2020 5:47 pm REASON FOR STUDY: right shoulder pain. fall. H/O ankylosing spondyli COMPARISON: None. NUMBER OF VIEWS: Three views. TECHNIQUE: Internal rotation, external rotation, and Y view images acquired of the right shoulder. LIMITATIONS: None. FINDINGS: MINERALIZATION: Normal. BONES: No acute fracture. No worrisome bone lesions. JOINTS: No dislocation. Mild glenohumeral and acromioclavicular arthropathy are demonstrated. VISUALIZED LUNGS AND RIBS: No pneumothorax. No rib fracture. SOFT TISSUES: No radiopaque foreign body. OTHER: No other significant finding. IMPRESSION: No evidence of acute osseous injury. Background of mild acromioclavicular and glenohume ral arthropathy. TECHNICAL DOCUMENTATION: JOB ID: [id number] 2010 [employer] All Rights Reserved Reading location - IP/workstation name: [email or web address]
--- NOTE | 2020-11-26 09:15 | PDOC TRANSFER SUMMARY ---
General Admission Date/PCP: 11/24/20 12:29 Admission Date: 11/24/20 Transfer Date: 11/26/20 Accepting Facility: [facility] Accepting Physician: Terry Greenwood Resuscitation Status: Full Code - Transfer Diagnosis (1) Acute ischemic cerebrovascular accident (CVA) involving left middle cerebral artery territory Is this a current diagnosis for this admission?: Yes (2) HTN (hypertension) Is this a current diagnosis for this admission?: Yes (3) Anxiety Is this a current diagnosis for this admission?: Yes (4) Ankylosing spondylitis Is this a current diagnosis for this admission?: Yes (5) Hyperlipidemia Is this a current diagnosis for this admission?: Yes - Transfer Medications Home Medications: Escitalopram Oxalate [Lexapro 10 mg Tablet] 20 mg PO QHS 11/24/20 Meloxicam [Mobic] 15 mg PO DAILY 11/24/20 Olmesartan/Hydrochlorothiazide [Olmesartan-Hctz 40-25 mg Tab] 1 each PO DAILY 11/24/20 Transfer Medications: Current Medications Acetaminophen (Acetaminophen 325 Mg Tablet) 975 mg PO Q4HP PRN PRN Reason: FOR PAIN Stop: 12/24/20 13:22 Last Admin: 11/25/20 16:42 Dose: 975 mg Documented by: Al Hydrox/Mg Hydrox/Simethicone (Mag Hydrox/Al Hydrox/Simeth Susp 30 Ml Udcup) 15 ml PO Q6HP PRN PRN Reason: HEARTBURN Stop: 12/24/20 13:16 Aspirin (Aspirin 81 Mg Tablet, Ent Coated) 81 mg PO DAILY [facility] Stop: 12/25/20 09:59 Last Admin: 11/25/20 09:41 Dose: 81 mg Documented by: Atorvastatin Calcium (Atorvastatin Calcium 80 Mg Tablet) 80 mg PO QHS [facility] Stop: 12/25/20 21:59 Last Admin: 11/25/20 21:46 Dose: 80 mg Documented by: Clopidogrel Bisulfate (Clopidogrel Bisulfate 75 Mg Tablet) 75 mg PO DAILY [facility] Stop: 12/25/20 09:59 Last Admin: 11/25/20 09:41 Dose: 75 mg Documented by: Cyclobenzaprine HCl (Cyclobenzaprine Hcl 10 Mg Tablet) 5 mg PO Q8HP PRN PRN Reason: MUSCLE SPASMS Stop: 12/25/20 00:00 Last Admin: 11/25/20 00:12 Dose: 5 mg Documented by: Enoxaparin Sodium (Enoxaparin Sodium Inj 40 Mg/0.4 Ml Disp.Syrin) 40 mg SUBCUT DAILY [facility] Stop: 12/25/20 09:59 Last Admin: 11/25/20 09:41 Dose: 40 mg Documented by: Escitalopram Oxalate (Escitalopram Oxalate 10 Mg Tablet) 20 mg PO DAILY [facility] Stop: 12/24/20 13:59 Last Admin: 11/25/20 09:41 Dose: 20 mg Documented by: Famotidine (Famotidine 20 Mg Tablet) 20 mg PO Q12 [facility] Stop: 12/24/20 21:59 Last Admin: 11/25/20 21:46 Dose: 20 mg Documented by: Hydrochlorothiazide (Hydrochlorothiazide 25 Mg Tablet) 25 mg PO DAILY [facility] Stop: 12/25/20 09:59 Last Admin: 11/25/20 09:41 Dose: 25 mg Documented by: Losartan Potassium (Losartan Potassium 50 Mg Tablet) 50 mg PO Q12 [facility] Stop: 12/25/20 09:59 Last Admin: 11/25/20 21:46 Dose: 50 mg Documented by: Meclizine HCl (Meclizine Hcl 25 Mg Tablet) 25 mg PO NOW ONE Stop: 11/26/20 09:31 Meloxicam (Meloxicam 15 Mg Tablet) 15 mg PO DAILY [facility] Stop: 12/24/20 14:59 Last Admin: 11/25/20 09:43 Dose: 15 mg Documented by: Ondansetron HCl (Ondansetron Hcl Inj/Pf 4 Mg/2 Ml Sdv) 4 mg IV Q6HP PRN PRN Reason: FOR NAUSEA/VOMITING Stop: 12/24/20 13:16 - Allergies Allergies/Adverse Reactions: No Known Allergies Allergy (Verified 11/24/20 07:27) Hospital Course Hospital Course: History of Present Illness on admission: SONJA ROSS is a 59 year old male with history of ankylosing spondylitis, arthritis in shoulders bilaterally and hip, hypertension, anxiety, who presents to the hospital for acute onset of right leg weakness. This started around 4-5 AM this morning. Last known normal was 10 PM last night. On presentation to the ER, neurology was consulted by ER provider and deemed to of course to be out of the therapeutic window for TPA. Is being brought in for treatment of stroke. He also notes some weakness in his right arm. He has chronic problems with his shoulder especially his right shoulder for which she gets injections. He denies any history of previous strokes. Denies any history of irregular heartbeat or A. fib. (1) Acute ischemic cerebrovascular accident (CVA) involving left middle cerebral artery territory Is this a current diagnosis for this admission?: Yes Plan: MRI confirms acute ischemic stroke. Involving the left centrum semiovale and anterior parietal Deficit is right sided weakness. 2/5 in rt leg. Mildly weak in Rt arm but may be due to shoulder arthropathy. 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 Presented out of the TPA window. Aspirin lifelong, Plavix for 19 more days, atorvastatin Telemetry monitoring so far has shown no evidence of AFib Echo and CTA H/N not remarkable Evaluated by PT who recommends Acute Rehab Accepted by Dr. Greenwood for acute inpatient rehab (2) HTN (hypertension) Qualifiers: Hypertension type: essential hypertension Qualified Code(s): I10 - Essential (primary) hypertension Is this a current diagnosis for this admission?: Yes Plan: Antihypertensives resumed. Takes olmesartan/hydrochlorothiazide 40/25 mg daily at home-Olmesartan substituted for losartan 50mg q12 while inpatient [olmesartan not on our fomulary]. (3) Anxiety Is this a current diagnosis for this admission?: Yes Plan: Escitalopram (4) Ankylosing spondylitis Is this a current diagnosis for this admission?: Yes Plan: Not on any biologic agents. Resume meloxicam. Pain control as needed. Right shoulder pain: Xray shows acromioclavicular arthropathy. (5) Hyperlipidemia Qualifiers: Hyperlipidemia type: mixed hyperlipidemia Qualified Code(s): E78.2 - Mixed hyperlipidemia Is this a current diagnosis for this admission?: Yes Plan: High-dose statin initiated Physical Exam Vital Signs: Temp Pulse Resp BP Pulse Ox 97.5 F 81 18 134/61 H 94 11/26/20 07:44 11/26/20 04:00 11/26/20 04:00 11/26/20 04:00 11/26/20 04:00 Intake & Output 11/25/20 11/26/20 11/27/20 06:59 06:59 06:59 Intake Total 880 Output Total 1050 400 Balance -1050 480 Weight 109.6 kg 109.8 kg General appearance: PRESENT: no acute distress, cooperative Neck exam: ABSENT: JVD Respiratory exam: PRESENT: unlabored. ABSENT: accessory muscle use, tachypnea Cardiovascular exam: PRESENT: +S1, +S2. ABSENT: tachycardia GI/Abdominal exam: PRESENT: soft. ABSENT: tenderness Extremities exam: PRESENT: tenderness - rt shoulder tenderness Neurological exam: PRESENT: alert, awake, oriented to person, oriented to place, oriented to time, oriented to situation, motor sensory deficit - RLE 2/5, 4/5 RUE Results Laboratory Results: 11/24/20 05:00 11/24/20 05:00 11/24/20 11/24/20 05:00 05:00 Creatine Kinase 135 CK-MB (CK-2) 1.37 Troponin I < 0.012 Impressions: Chest X-Ray 11/24/20 00:00 IMPRESSION: No active disease. Head CT 11/24/20 00:00 IMPRESSION: No acute intracranial abnormality. Dr. Norton was made aware of this report by myself by phone on 11/24/2020 at 5:34 AM eastern time. Head CTA 11/24/20 07:32 IMPRESSION: NO CTA EVIDENCE OF STENOSIS OR ANEURYSM OF [place]. Neck CTA 11/24/20 07:32 IMPRESSION: NORMAL CTA OF THE EXTRA-CRANIAL CAROTID AND VERTEBRAL ARTERIES. Head MRI 11/24/20 09:12 IMPRESSION: Acute infarct in the left MCA distribution involving the left centrum semiovale near the midline. This extends to involve the anterior parietal lobe. Mild underlying small vessel ischemic changes in the periventricular and subcortical white matter. EVIDENCE OF ACUTE STROKE: YES. Shoulder X-Ray 11/25/20 00:00 IMPRESSION: No evidence of acute osseous injury. Background of mild acromioclavicular and glenohumeral arthropathy. Plan Time Spent: Less than 30 Minutes
[2020-11-26] MEDS: MELOXICAM 15 MG TABLET PO SCH (09:25)
[2020-11-26] MEDS: HYDROCHLOROTHIAZIDE 25 MG TABLET PO SCH (09:26)
[2020-11-26] MEDS: FAMOTIDINE 20 MG TABLET PO SCH (09:26)
[2020-11-26] MEDS: ASPIRIN 81 MG TABLET, ENT COATED PO SCH (09:26)
[2020-11-26] MEDS: LOSARTAN POTASSIUM 50 MG TABLET PO SCH (09:26)
[2020-11-26] MEDS: CLOPIDOGREL BISULFATE 75 MG TABLET PO SCH (09:26)
[2020-11-26] MEDS: ESCITALOPRAM OXALATE 10 MG TABLET PO SCH (09:26)
[2020-11-26] MEDS: ENOXAPARIN SODIUM INJ 40 MG/0.4 ML DISP.SYRIN SUBCUT SCH (09:27)
[2020-11-26] MEDS ORDERED: MECLIZINE HCL 25 MG TABLET PO ONE (09:30)
[2020-11-26 09:32] VITALS: BP 120/92
== END 2020-11-26 10:12 | disposition short-term general hospital (02) | DRG 66 ==
LOC: ER 04:48 → EH 12:29 → 5 18:16
PROVIDERS: ADMIT Internal Medicine; ATTEND Internal Medicine
DX: I63.512 Cerebral infarction due to unspecified occlusion or stenosis of left middle cerebral artery (principal); M19.012 Primary osteoarthritis, left shoulder; M19.011 Primary osteoarthritis, right shoulder; M16.0 Bilateral primary osteoarthritis of hip; I10 Essential (primary) hypertension; F41.1 Generalized anxiety disorder; G83.14 Monoplegia of lower limb affecting left nondominant side; Z20.822 Contact with and (suspected) exposure to COVID-19; Z82.3 Family history of stroke
CPT/HCPCS: 36415; 70450; 70496; 70498; 70553; 71045; 80053; 80061; 82550; 82553; 83036; 84484; 85025; 85610; 85730; 93005; 93010; 93306; 99285; 0241U; A9576; C9803; J1650